=== PATIENT | male | born 1985 | race Two or more races ===

== ENCOUNTER 2017-08-31 18:13 | Emergency (ER) | payer OTHER ==
[~2017-08-31] VITALS: Ht 182.9 cm; Wt 77.6 kg
[2017-08-31] MEDS ORDERED: HYDROcodone-ACET 10/325MG TAB ONE (19:42)
[2017-08-31] MEDS ORDERED: HYDROcodone-ACET 10/325MG TAB PO ONE (19:45)
[2017-08-31 22:10] VITALS: BP 127/70
== END 2017-08-31 23:02 | disposition home or self-care (01) ==
LOC: ER 18:16
DX: S82.831A Other fracture of upper and lower end of right fibula, initial encounter for closed fracture (principal); W18.39XA Other fall on same level, initial encounter; Y93.39 Activity, other involving climbing, rappelling and jumping off; Y99.8 Other external cause status; Y92.89 Other specified places as the place of occurrence of the external cause
CPT/HCPCS: 29515; 73610